=== PATIENT | female | born 1980 ===

== ENCOUNTER 2016-12-22 11:18 | Inpatient (IN) ==
[2016-12-22 12:07] LABS: Basophils # 0.1 K/mcL (0.0-0.2); Basophils % 0.5 %; Eosinophils # 0.1 K/mcL (0.0-0.6); Eosinophils % 0.6 %; Hematocrit 36.5 % (35.3-44.9); Hemoglobin 12.5 g/dL (11.5-15.4); Immature Granulocytes % 1.9 % (0-4); Lymphocytes # 1.5 K/mcL (0.6-4.6); Mean Corpuscular HGB Conc 34.2 g/dL (31.6-35.5); Mean Corpuscular Hemoglobin 32.5 pg (28.0-33.3); Mean Corpuscular Volume 94.8 fL (83.0-100.0); Mean Platelet Volume 10.3 fL (9.4-12.4); Monocytes % 9.2 %; Neutrophils # 8.1 K/mcL (1.6-8.9); Platelet Count 179 K/mcL (140-400); Red Blood Count 3.85 M/mcL (3.82-4.97); Red Cell Distribution Width 13.4 % (11.5-14.5); Segmented Neutrophils % 73.8 %
[2016-12-22 12:17] LABS: Protein/Creatinine Ratio,Urine 1.46 mg/mg (0-0.20)
[2016-12-22 12:19] LABS: Alanine Aminotransferase 32 Units/L (0-55); Aspartate Amino Transferase 27 Units/L (5-34); BUN/Creatinine Ratio 15 (6-26); Blood Urea Nitrogen 10 mg/dL (7-20); Lactate Dehydrogenase 233 Units/L (159-327); Uric Acid 3.8 mg/dL (2.6-6.0); eGFR For African Americans > 60 (> 60); eGFR For Non-African Americans > 60 (> 60)
[2016-12-22] MEDS ORDERED: Naloxone 0.4 MG/ML INJ IVP PRN (12:56)
[2016-12-22] MEDS ORDERED: Metoclopramide 10 MG/2 ML VIAL IVP PRN (12:56)
[2016-12-22] MEDS ORDERED: Ondansetron 4 MG/2 ML VIAL IVP PRN (12:56)
[2016-12-22] MEDS ORDERED: Famotidine 20 MG/2 ML VIAL IVP PRN (12:56)
[2016-12-22] MEDS: Ringers Solution, Lactated 1,000 ML IVC SCH ×3 (13:00→21:09)
[2016-12-22] MEDS ORDERED: Ringers Solution, Lactated 1,000 ML ONE (13:00)
--- NOTE | 2016-12-22 13:12 | OB/GYN History & Physical ---
Date of Encounter: 12/22/16 Time of Encounter: 13:07 Assessment and Plan (1) 37 weeks gestation of Current visit: Yes Status: Acute Admit to labor and delivery for medical induction of labor Routine expectant management Patient may have epidural upon request for pain control Dr Duran to [facility] for augmentation (patient making cervical change in triage) Anticipate vaginal delivery POC per consult with Dr Duran (2) Preeclampsia Current visit: Yes Status: Acute Vital signs stable - no hypertension noted at this time Continue to monitor vital signs Increased urine protein creatinine ratio Admit to labor and delivery for medical induction of labor Qualifiers: Trimester: third trimester Qualified Code(s): O14.93 - Unspecified pre- eclampsia, third trimester History of Present Illness Chief complaint: proteinuria HPI: Ms. Gagandeep Mccrary is a 36 year old female at 37 weeks and 2 days gestation. She arrives to labor and delivery from the office today with complaints of 30+ proteinuria for the past 2 weeks. She denies headache, vision changes, and epigastric pain. She denies cramping, leaking of fluid, and vaginal bleeding. She states positive movement. Her risk factors during this include high-risk due to advanced maternal age, LGA fetus showing appropriate growth per ultrasonic monitoring, intramural fibroids, a family history of down syndrome with a reassuring level II ultrasound and patient declining genetic testing, and anemia of the third trimester with iron supplementation. She is A+, GBS negative, Rubella immune, Hepatitis B nonreactive, T-Pallidum negative, and Varicella immune. Past Med Surg Social Fam HX - Past Medical History Medical history: migraine Psychiatric history: no psych history - Past Surgical History Surgical History: other - Social History Smoking Status: Never smoker Alcohol use: none Drug use: none - Family History Father Name: kingston westbrook Age: 65 Living Status: Still Living Hx Family Cardiac Disorders: Yes (cardiac disease, has defib) Hx Family Respiratory Disorders: Yes (copd) Hx Family Cancer: No Hx Family GI Disorders: No Hx Family Genitourinary Disorders: No Hx Family Endocrine Disorder: Yes (diabetes) Hx Family Musculoskeletal Disorders: No Hx Family Neuromuscular Disorders: No Hx Family Neurologic Disorders: No Hx Family HEENT Disorders: No Hx Family Autoimmune Disorders: No Hx Family Reproductive Disorders: No Hx Family Psychosocial Disorders: No Hx Family Medical Disorders: No Obstetrical History - Pregnancies : 1 Para: 0 Term: 0 : 0 Ab's: 0 Livin Review of System OB All systems PM: reviewed and no additional remarkable complaints except as stated Exam - Constitutional Constitutional: well developed, well nourished, no acute distress, average body habitus - HEENT HEENT: Oral Lesions - Neck Neck exam: full ROM - Lungs Respiratory exam: CTAB - Cardiovascular Cardiovascular exam: RRR, +S1, +S2 - Breasts Breast: bilateral: normal - Abdomen Abdomen: Present: bowel sounds normal, gravid, non tender - Extremities Extremities exam: normal capillary refill, normal inspection, radial pulses palpable and symetrical Deep Tendon Reflex Grade: 2+ Normal - Cervix Dilation: 6 (Per Dr Duran) Effacement: 80 (Per Dr Duran) Station: -1 - Uterus Uterus exam: Present: normal size, normal contour Results Result Diagrams: 12/22/16 11:55 12/22/16 11:55 Abnormal lab results Protein/Creatinin Ratio 1.46 mg/mg (0-0.20) H 12/22/16 11:55 Urine Total Protein 80 mg/dL (1-14) H 12/22/16 11:55 All other labs normal. - VTE Reasons for not Prescribing Prophylaxis: Treatment not Indicated - Low risk for VTE
[2016-12-22] MEDS ORDERED: *HR* FentaNYL (PF) 100 MCG/2 ML VIAL ONE (16:38)
[2016-12-22] MEDS ORDERED: Bupivacaine-MPF 0.25% 10 ML VIAL ONE (16:39)
[2016-12-22] MEDS ORDERED: Epidural Premix (fent/bupiv) 110 ML EP ONE (16:44)
--- NOTE | 2016-12-22 17:16 | Anesthesia Evaluation PreOp ---
Date of Encounter: 12/22/16 Time of Encounter: 13:50 - Past History Planned Operation: epidural Cardiac History: Denies any Significant Hx Pulmonary History: Denies Any Significant HX [employer] History: Other (mild scoliosis) Other Medical History: GERD Anesthesia History: No Prior Anesthetic Complications (never had anesthesia) : Yes Test: Positive Alcohol Use: none Drug use: none - Meds/Allergy Pre-op Review Medications Reviewed: Yes Allergies Reviewed: Yes Beta Blockers on Current Med List: No Anesthesia Results - Labs 12/22/16 11:55 12/22/16 11:55 Anesthesia Exam 3 Vital Signs Time 1350 BP 130/68 Pulse 78 Resp 16 O2 Sat Height: 68 Weight: 192 pounds NPO (# of Hours): 9 am solids Pain Scale: 2 Pain Scale Used: Numeric (1 - 10) - HEENT Pupil (Motor): Pupils equal Mallampati: II Teeth: Normal Oral Opening: Greater than 3 - [employer] LOC: Oriented [employer] Motor: Normal RUE, Normal LUE, Normal RLE, Normal LLE, Normal Face [employer] Sensory: Normal: RUE, LUE, RLE, LLE, Face - Cardiac Rhythm: Regular Murmur: None JVD: No Carotid Bruit: No - Pulmonary Breath Sounds: bilateral Clear Respiratory Effort: Symmetrical Anesthesia Assess/Plan ASA Score: 2 Modified Stuart Scale for Level of Consciousness: Cooperative, oriented, and tranquil Anesthetic Plan: Regional Autologous Blood: No Monitoring Plan: Standard Monitors Recovery Plan: Other
--- NOTE | 2016-12-22 17:23 | Anesthesia Procedures ---
Date of Encounter: 12/22/16 Time of Encounter: 16:41 Procedures: Anesthesia - Epidural/Spinal Patient ID/Chart reviewed: Yes Patient examined: Yes OB Eval: Gestational age: 37.2 OB Eval: : 1 OB Eval: Hx Para: 0 OB Eval: Dilated at (cm): 6 OB Eval: Contractions: Non-stressed pattern Consent Obtained: Yes Supplemental Oxygen: None/Room Air Site Prep: Aseptic Technique, Sterile prep and drape, Povidone-Iodine 1% Patient position: upright Local Anesthetic: Lidocaine 1% Amount of Local Anesthetic used: 5 Touhy Needle Gauge: 18 Touhy Needle Depth (cm): 5 Catheter Depth at Skin (cm): 13 (at skin) Test Dose (1.5% Lido + Epi): Volume given (mls): 4 Test Dose Result: Negative Loading Dose: 0.25% Marcaine (mls): 10 Loading Dose: Fentanyl (mcg): 100 Loading Dose Administered: Thru Catheter Infusion Med: 0.125% Bupivacaine w/ 2 mcg/ml Fentanyl Infusion Rate (mls/hr): [address]: Tegaderm Interspace Used: L2-L3 Loss of Resistance (SHARRON): Yes Blood: No (Not on the 2nd attempt) CSF: No Paresthesia: No Vitals + FHT's: 3 Vital Signs In room Test dose Bolus Finish Time 1641 1656 1720 BP 150/67 124/58 127/60 117/57 120/56 116/56 Pulse 81 71 86 76 81 76 Resp 18 18 18 18 18 18 O2 Sat 98% 98% 98% 98% 98% 98% FHTs 130s off monitor 140s 140s 140s Anes Supervising Prov Stmt: Pt tolerated procedure well. No immediate complications.Pt comfortable and resting at time of departure. Martir Zimmerman MD
--- NOTE | 2016-12-22 17:55 | OB Labor Progress Note ---
Date of Encounter: 12/22/16 Time of Encounter: 17:52 Labor Progress Note - Subjective Subjective: The patient is comfortable with her epidural - Vital Signs Vital Signs: Afebrile, vital signs stable - Cervix Cervix: 6-7/80/-1 with contraction. Bulging forebag, vertex - Heart Tones Heart Tones: 120s, CAT 1 - [place]: Contractions spontaneous every 5 minutes - Interventions Interventions: 37 weeks with spontaneous onset of labor, proteinuria - Plan Plan: Amniotomy was performed with bright red bloody fluid noted. IUPC placed without difficulty. Patient then vague old with blood pressure of 80/40. Anesthesia contacted and treated. Patient feeling better. heart tones stable throughout
[2016-12-22] MEDS ORDERED: Oxytocin 20 units/ LR 1000 mL 20 UNIT/1,000 ML BAG IVC SCH (18:27)
[2016-12-22] MEDS ORDERED: EPHEDrine 50 MG/ML VIAL ONE (19:25)
[2016-12-23] MEDS ORDERED: Epidural Premix (fent/bupiv) 110 ML EP ONE (01:32)
[2016-12-23 05:09] LABS: Basophils % 0.2 %; Eosinophils % 0.1 %; Hematocrit 34.4 % (35.3-44.9); Hemoglobin 11.6 g/dL (11.5-15.4); Immature Granulocytes % 1.3 % (0-4); Immature Platelets 6.9 % (1.1-6.1); Lymphocytes # 1.2 K/mcL (0.6-4.6); Lymphocytes % 6.9 %; Mean Corpuscular HGB Conc 33.7 g/dL (31.6-35.5); Mean Corpuscular Hemoglobin 32.7 pg (28.0-33.3); Mean Corpuscular Volume 96.9 fL (83.0-100.0); Monocytes # 1.3 K/mcL (0.0-1.3); Monocytes % 7.9 %; Neutrophils # 14.1 K/mcL (1.6-8.9); Platelet Count 158 K/mcL (140-400); Red Blood Count 3.55 M/mcL (3.82-4.97); Red Cell Distribution Width 13.5 % (11.5-14.5); Segmented Neutrophils % 83.6 %
[2016-12-23] MEDS ORDERED: *HR* Ropivacaine/PF 0.2% 10 ML AMPUL ONE (06:24)
--- NOTE | 2016-12-23 06:51 | Anesthesia Progress Note ---
Date of Encounter: 12/23/16 Time of Encounter: 06:35 Anesthesia Note - Note Note: 12/23/16 06:48 patient complaining of low back pain, patient complete dilation at present, 10 ml ropivicaine 0.2% given in 3.33 ml increments over 10 min, vs stable throughout, heart tones 160's. 3 Vital Signs Time 0635 0640 BP 141/68 139/68 Pulse 85 84 Resp 16 16 O2 Sat
--- NOTE | 2016-12-23 07:41 | OB Labor Progress Note ---
Date of Encounter: 12/23/16 Time of Encounter: 07:38 Labor Progress Note - Subjective Subjective: Pt is comfortable with her epidural rebolus. She had a CBC d/t FHR baseline of 160-170s and it was reassuring. She has remained afebrile - Vital Signs Vital Signs: Afebrile, VSS - Cervix Cervix: Complete, +2 - Heart Tones Heart Tones: 145 baseline, CAT2 - [place]: 2-3', 30-50mmHg - Interventions Interventions: 37 w 3d IUP in labor, augmented with pitocin after epidural. Abruptio w/ proteinuria - Plan Plan: labor down, anticipate
[2016-12-23] MEDS ORDERED: Lidocaine/EPI 1:100k 1% 30 ML VIAL ONE (11:29)
--- NOTE | 2016-12-23 11:47 | OB/GYN Procedure Note ---
Delivery - Delivery Date: 12/23/16 Provider: Beatrice Duran Intrapartum events: none Delivery induction: none Delivery augmentation: rupture of membranes Delivery monitor: external FHT, external uterine, internal uterine Anesthesia: local, epidural Estimated Blood Loss: 300 - Infant (s) A Infant Delivery Date: 12/23/16 Infant Delivery Time: 11:22 Presentation: vertex Position: KULWINDER Route of delivery: Gender: Female Viability: Viable at 1 minute: 8 at 5 mins: 9 Shoulder Dystocia: not encountered Specimens collected: cord blood Placenta: spontaneous, uterine exploration Cord: nuchal cord, 3 umbilical vessels, nuchal reduced - Repair Episiotomy: none Laceration Description: Perineal - 3rd Degree - Complications Delivery complications: none Delivery comments: The patient was complete and pushing with epidural anesthesia with a spontaneous vaginal delivery in the KULWINDER position of a vigorous female infant with undocumented weight at the time of dictation, please see flow sheet for specifics, with Apgars of 8 at 1 minute and 9 at 5 minutes. Infant was placed on the maternal abdomen. The cord was clamped and cut after pulsations ceased. Cord blood obtained. The placenta was delivered spontaneous and intact. 15% abruption noted.third degree midline perineal laceration which was not hemostatic and was repaired with 3-0 Vicryl in the usual fashion, using 3-0 Vicryl to reinforce the incompletely transected transverse peroneus with figure- of-eight suture. Estimated blood loss 300 mL, complications none - Disposition Mom disposition: stable in LDR disposition: stable in LDR
[2016-12-23] MEDS ORDERED: Benzocaine/Menthol 56 GM AEROSOL SPRAY TP PRN (14:29)
[2016-12-23] MEDS ORDERED: Lanolin 28 GM TUBE TP PRN (14:29)
[2016-12-23] MEDS ORDERED: Ibuprofen 600 MG TABLET PO PRN (14:29)
[2016-12-23] MEDS ORDERED: Acetaminophen 325 MG TABLET PO PRN (14:29)
[2016-12-23] MEDS ORDERED: Oxytocin 20 units/ LR 1000 mL 20 UNIT/1,000 ML BAG IVC SCH (14:29)
[2016-12-23] MEDS ORDERED: *HR* HYDROcodone/Acet 5/325 mg TABLET PO PRN (14:29)
[2016-12-24 06:02] LABS: Basophils # 0.1 K/mcL (0.0-0.2); Basophils % 0.3 %; Eosinophils # 0.1 K/mcL (0.0-0.6); Eosinophils % 0.5 %; Hematocrit 30.6 % (35.3-44.9); Hemoglobin 10.5 g/dL (11.5-15.4); Immature Granulocytes % 1.4 % (0-4); Lymphocytes # 2.7 K/mcL (0.6-4.6); Lymphocytes % 12.1 %; Mean Corpuscular HGB Conc 34.3 g/dL (31.6-35.5); Mean Corpuscular Hemoglobin 33.8 pg (28.0-33.3); Mean Corpuscular Volume 98.4 fL (83.0-100.0); Mean Platelet Volume 10.5 fL (9.4-12.4); Monocytes # 1.9 K/mcL (0.0-1.3); Monocytes % 8.3 %; Neutrophils # 17.2 K/mcL (1.6-8.9); Platelet Count 136 K/mcL (140-400); Red Blood Count 3.11 M/mcL (3.82-4.97); Segmented Neutrophils % 77.4 %
[2016-12-24] MEDS: Prenatal Vit/FA 1 EACH TABLET PO SCH (09:44)
--- NOTE | 2016-12-24 10:17 | Discharge Summary ---
Date of Encounter: 12/24/16 Time of Encounter: 10:14 - Discharge Diagnosis (1) Vaginal delivery Priority: Primary Status: Acute Comments: Pt meeting milestones. (2) Mother currently breast-feeding Priority: Secondary Status: Acute (3) Preeclampsia Priority: Secondary Status: Acute Comments: normotensive Qualifiers: Trimester: third trimester Qualified Code(s): O14.93 - Unspecified pre- eclampsia, third trimester - Discharge Medications Prescriptions: Ibuprofen [Motrin] 600 mg PO Q6HR PRN #60 tablet PRN Reason: Cramping Docusate [Colace] 100 mg PO BID #60 capsule Home Medications: Benzocaine/Menthol [place] [Dermoplast [place]] 1 appl TP QID PRN #0 aerosol [Rx] Breast Pump [BREAST PUMP] 1 each .ROUTE AD #1 each 12/24/16 [Rx] Docusate [Colace] 100 mg PO BID #60 capsule 12/24/16 [Rx] Ibuprofen [Motrin] 600 mg PO Q6HR PRN #60 tablet 12/24/16 [Rx] Lanolin 1 appl TP QID PRN #0 tube 12/24/16 [Rx] Vit/FA 1 each PO DAILY tablet 12/24/16 [Rx] Allergies/Adverse Reactions: Allergies Sulfa (Sulfonamide Antibiotics) Allergy (Verified 12/22/16 17:30) Rash Data Procedures and tests throughout hospitalization: Laboratory Tests 12/22/16 12/22/16 12/22/16 11:55 11:55 11:55 WBC 10.9 RBC 3.85 Hgb 12.5 Hct 36.5 MCV 94.8 MCH 32.5 MCHC 34.2 RDW 13.4 Plt Count 179 MPV 10.3 Immature Gran % 1.9 Seg Neutrophils % 73.8 Lymphocytes % 14.0 Monocytes % 9.2 Eosinophils % 0.6 Basophils % 0.5 Neutrophils # 8.1 Lymphocytes # 1.5 Monocytes # 1.0 Eosinophils # 0.1 Basophils # 0.1 Immature Plt Fraction BUN 10 Creatinine 0.65 Est GFR ( Amer) > 60 Est GFR (Non-Af Amer) > 60 BUN/Creatinine Ratio 15 Uric Acid 3.8 AST 27 ALT 32 Lactate Dehydrogenase 233 Urine Creatinine 55 Protein/Creatinin Ratio 1.46 H Urine Total Protein 80 H 12/23/16 12/24/16 05:00 05:55 WBC 16.9 H D 22.2 H RBC 3.55 L 3.11 L Hgb 11.6 10.5 L Hct 34.4 L 30.6 L MCV 96.9 98.4 MCH 32.7 33.8 H MCHC 33.7 34.3 RDW 13.5 14.0 Plt Count 158 136 L MPV 10.0 10.5 Immature Gran % 1.3 1.4 Seg Neutrophils % 83.6 77.4 Lymphocytes % 6.9 12.1 Monocytes % 7.9 8.3 Eosinophils % 0.1 0.5 Basophils % 0.2 0.3 Neutrophils # 14.1 H 17.2 H Lymphocytes # 1.2 2.7 Monocytes # 1.3 1.9 H Eosinophils # 0.0 0.1 Basophils # 0.0 0.1 Immature Plt Fraction 6.9 H BUN Creatinine Est GFR ( Amer) Est GFR (Non-Af Amer) BUN/Creatinine Ratio Uric Acid AST ALT Lactate Dehydrogenase Urine Creatinine Protein/Creatinin Ratio Urine Total Protein Labs on day of discharge: Labs from last 24 hours 12/24/16 05:55 WBC 22.2 H RBC 3.11 L Hgb 10.5 L Hct 30.6 L MCV 98.4 MCH 33.8 H MCHC 34.3 RDW 14.0 Plt Count 136 L MPV 10.5 Immature Gran % 1.4 Seg Neutrophils % 77.4 Lymphocytes % 12.1 Monocytes % 8.3 Eosinophils % 0.5 Basophils % 0.3 Neutrophils # 17.2 H Lymphocytes # 2.7 Monocytes # 1.9 H Eosinophils # 0.1 Basophils # 0.1 Date of admission: 12/22/16 11:18 Primary care physician: PCP NO Consults: 12/23/16 14:29 Consult to Medical Information Specialist [CONS] Routine Comment: Vaginal delivery, consult needed Discharging clinician: Alison Vidal Anticipated date of discharge: 12/24/16 - Patient Status Disposition: Home, Self-Care Condition: Good Functional capacity at discharge: independent ambulation Overall status at discharge: patient is progressing back to baseline - Discharge Instructions Follow Up With: NO,PCP [Primary Care Provider] - Beatrice Duran MD [Partnered Physician] - - Diet and Activity Activity: increase activity as tolerated Diet: regular diet Hospital Course Reason for admission: active labor Delivery: Episiotomy: none Laceration: 3rd degree Other procedures: none complications: none Discharge diagnosis: IUP at term delivered [place] baby: female Hospital course: - Delivery Date: 12/23/16 Provider: Beatrice Duran Intrapartum events: none Delivery induction: none Delivery augmentation: rupture of membranes Delivery monitor: external FHT, external uterine, internal uterine Anesthesia: local, epidural Estimated Blood Loss: 300 - (s) Infant A Delivery Date: 12/23/16 Infant Delivery Time: 11:22 Presentation: vertex Position: KULWINDER Route of delivery: Gender: Female Viability: Viable at 1 minute: 8 at 5 mins: 9 Shoulder Dystocia: not encountered Specimens collected: cord blood Placenta: spontaneous, uterine exploration Cord: nuchal cord, 3 umbilical vessels, nuchal reduced - Repair Episiotomy: none Laceration Description: Perineal - 3rd Degree - Complications Delivery complications: none - Disposition Mom disposition: home PPD#1 [place] disposition: home with mother, Time Attestation: Total time spent providing and/or coordinating discharge services: Time Spent: Less than 30 minutes Exam - Constitutional Vitals: Temp Pulse Resp BP Pulse Ox 97.7 F 68 16 115/68 98 12/24/16 07:45 12/24/16 07:45 12/24/16 07:45 12/24/16 07:45 12/24/16 07:45 General appearance IM: A&O X 3, pleasant, no acute distress - Respiratory Respiratory exam: Present: CTAB - Cardiovascular Cardiovascular exam IM: Present: RRR, +S1, +S2 - GI/Abdominal GI/Abdominal exam IM: soft - Uterine Tone: Firm Uterus Position: 1 Finger Below Umbilicus - Extremities Exam Extremities exam IM: Present: pedal edema (mild edema bilaterally) - Neurological Exam Neurological exam: normal gait, oriented X3 - Psychiatric Additional comments: reports good mood
--- NOTE | 2016-12-25 07:49 | Discharge Summary ---
Date of Encounter: 12/25/16 Time of Encounter: 07:50 - Discharge Diagnosis (1) Mother currently breast-feeding Priority: Secondary Status: Acute (2) Preeclampsia Priority: Secondary Status: Acute Qualifiers: Trimester: third trimester Qualified Code(s): O14.93 - Unspecified pre- eclampsia, third trimester (3) Vaginal delivery Priority: Primary Status: Acute - Discharge Medications Prescriptions: Ibuprofen [Motrin] 600 mg PO Q6HR PRN #60 tablet PRN Reason: Cramping Breast Pump [BREAST PUMP] 1 each .ROUTE AD #1 each Docusate [Colace] 100 mg PO BID #60 capsule Home Medications: Benzocaine/Menthol [place] [Dermoplast [place]] 1 appl TP QID PRN #0 aerosol [Rx] Breast Pump [BREAST PUMP] 1 each .ROUTE AD #1 each 12/24/16 [Rx] Docusate [Colace] 100 mg PO BID #60 capsule 12/24/16 [Rx] Ibuprofen [Motrin] 600 mg PO Q6HR PRN #60 tablet 12/24/16 [Rx] Lanolin 1 appl TP QID PRN #0 tube 12/24/16 [Rx] Vit/FA 1 each PO DAILY tablet 12/24/16 [Rx] Allergies/Adverse Reactions: Allergies Sulfa (Sulfonamide Antibiotics) Allergy (Verified 12/22/16 17:30) Rash Data Procedures and tests throughout hospitalization: Laboratory Tests 12/22/16 12/22/16 12/22/16 11:55 11:55 11:55 WBC 10.9 RBC 3.85 Hgb 12.5 Hct 36.5 MCV 94.8 MCH 32.5 MCHC 34.2 RDW 13.4 Plt Count 179 MPV 10.3 Immature Gran % 1.9 Seg Neutrophils % 73.8 Lymphocytes % 14.0 Monocytes % 9.2 Eosinophils % 0.6 Basophils % 0.5 Neutrophils # 8.1 Lymphocytes # 1.5 Monocytes # 1.0 Eosinophils # 0.1 Basophils # 0.1 Immature Plt Fraction BUN 10 Creatinine 0.65 Est GFR ( Amer) > 60 Est GFR (Non-Af Amer) > 60 BUN/Creatinine Ratio 15 Uric Acid 3.8 AST 27 ALT 32 Lactate Dehydrogenase 233 Urine Creatinine 55 Protein/Creatinin Ratio 1.46 H Urine Total Protein 80 H 12/23/16 12/24/16 05:00 05:55 WBC 16.9 H D 22.2 H RBC 3.55 L 3.11 L Hgb 11.6 10.5 L Hct 34.4 L 30.6 L MCV 96.9 98.4 MCH 32.7 33.8 H MCHC 33.7 34.3 RDW 13.5 14.0 Plt Count 158 136 L MPV 10.0 10.5 Immature Gran % 1.3 1.4 Seg Neutrophils % 83.6 77.4 Lymphocytes % 6.9 12.1 Monocytes % 7.9 8.3 Eosinophils % 0.1 0.5 Basophils % 0.2 0.3 Neutrophils # 14.1 H 17.2 H Lymphocytes # 1.2 2.7 Monocytes # 1.3 1.9 H Eosinophils # 0.0 0.1 Basophils # 0.0 0.1 Immature Plt Fraction 6.9 H BUN Creatinine Est GFR ( Amer) Est GFR (Non-Af Amer) BUN/Creatinine Ratio Uric Acid AST ALT Lactate Dehydrogenase Urine Creatinine Protein/Creatinin Ratio Urine Total Protein Date of admission: 12/22/16 11:18 Primary care physician: PCP NO Consults: 12/23/16 14:29 Consult to Qa Engineer [CONS] Routine Comment: Vaginal delivery, consult needed Discharging clinician: Pilo Chen Anticipated date of discharge: 12/25/16 - Patient Status Disposition: Home, Self-Care Condition: Good Overall status at discharge: patient is progressing back to baseline - Discharge Instructions Follow Up With: Beatrice Duran MD [Partnered Physician] - NO,PCP [Primary Care Provider] - - Diet and Activity Activity: increase activity as tolerated Diet: advance to your usual diet Hospital Course Reason for admission: induction of labor Delivery: Episiotomy: none Laceration: 3rd degree Other procedures: none complications: none Discharge diagnosis: IUP at term delivered Hospital course: Patient is a 36-year-old female who presented for induction of labor. Patient delivered vaginally with no complications. Patient's baby had some elevated bilirubins and had to be watched for longer period of time. Patient was observed for 48 hours she was doing well minimal bleeding breast-feeding was going well. Patient will be discharged and will follow up in the office in 4 weeks. She has a prescription for Motrin 600 mg and iron sulfate Time Attestation: Total time spent providing and/or coordinating discharge services: Exam - Constitutional Vitals: Temp Pulse Resp BP Pulse Ox 98.1 F 75 14 123/71 98 12/24/16 20:14 12/24/16 20:14 12/24/16 20:14 12/24/16 20:14 12/24/16 20:14 General appearance IM: A&O X 3, pleasant, no acute distress - Respiratory Respiratory exam: Present: CTAB - Cardiovascular Cardiovascular exam IM: Present: RRR - GI/Abdominal GI/Abdominal exam IM: normal bowel sounds - Uterus Position: At Umbilicus
[2016-12-25 08:16] VITALS: BP 118/69
[2016-12-25] MEDS: Prenatal Vit/FA 1 EACH TABLET PO SCH (08:19)
== END 2016-12-25 09:00 | disposition home or self-care (01) | DRG 774 ==
LOC: 1NENULAB → OBSVTOIN 11:18 → 1NENUOBS 12-23 14:33
PROVIDERS: ADMIT Obstetrics & Gynecology; ATTEND Obstetrics & Gynecology